=== PATIENT | male | born 1995 | race Two or more races ===

== ENCOUNTER 2016-08-01 08:07 | Emergency (ER) | payer MEDICAID ==
--- NOTE | 2016-08-01 08:45 | EDM.PDOC ---
ED HPI RENAL/ - General Chief Complaint: Abdominal Pain Stated Complaint: [id number] PELVIC AND LOWER AB PAIN Time Seen by Provider: 08/01/16 08:35 Source of Information: Reports: Patient History Limitations: Reports: No limitations - History of Present Illness INITIAL COMMENTS - FREE TEXT/NARRATIVE: This 21 yo male patient reports to the ED with a 1 day history of increased pain in his pelvis and testicles. The patient reports increased pain in the left side, but both testicles are sore. The patient reports he feels like he is constantly urinating. The patient has only been able to void small amounts of urine. The patient reports increased pain yesterday after lifting 50 pound bags of popcorn. The patient reports no new sexual partners, no drainage and no increased pain with urination. Symptom Onset Date: 07/31/16 Timing/Duration: Reports: Constant Location: Reports: scrotal Quality: Reports: ache Severity: moderate Context: Reports: lifting Associated Symptoms: Reports: voiding small amounts, groin pain, testicular pain , abdominal pain (lower abdominal and pelvic pain). Denies: incontinence, burning, dysuria, frequency, hesitancy, nocturia, urgency, unable to urinate, penile discharge, blood in ejaculate, blood in urine, fever/chills, inguinal mass, nausea/vomiting, constipation - Related Data Allergies/ADRs: Allergies Allergy/AdvReac Type Severity Reaction Status Date / Time latex Allergy Swelling Verified 08/01/16 08:21 Home Meds: Home Meds Escitalopram [Lexapro] 20 mg PO BEDTIME 02/27/15 [History] Past Medical History - Past Health History Medical/Surgical History: Denies Medical/Surgical History Musculoskeletal History: Reports: Other (see below) Other Musculoskeletal History: at age 7 broke right wrist and broke left arm in 7th grade Psychiatric History: Reports: Depression, Suicide attempt, Suicidal ideation Social & Family History - Family History Family Medical History: Noncontributory - Tobacco Use Smoking Status *Q: Never Smoker Second Hand Smoke Exposure: Yes - Caffeine Use Caffeine Use: Reports: Soda - Recreational Drug Use Recreational Drug Use: No ED ROS GENERAL - Review of Systems Review Of Systems: ROS reveals no pertinent complaints other than HPI. ED EXAM, RENAL/ - Physical Exam Exam: See Below Exam Limited By: No limitations General Appearance: alert, WD/WN, anxious, moderate distress Eye Exam: bilateral eye: EOMI, normal inspection, PERRL Ears: normal external exam, normal canal, hearing grossly normal, normal TMs Nose: normal inspection, normal mucosa, no blood Throat/Mouth: Normal inspection, Normal lips, Normal teeth, Normal gums, Normal oropharynx, Normal voice, No airway compromise Head: atraumatic, normocephalic Neck: normal inspection, supple, non-tender, full range of motion Respiratory/Chest: no respiratory distress, lungs clear, normal breath sounds, no accessory muscle use, chest non-tender Cardiovascular: normal peripheral pulses, regular rate, rhythm, no edema, no gallop, no JVD, no murmur, no rub GI/Abdominal: normal bowel sounds, soft, no organomegaly, no distention, no abnormal bruit, no mass, tender (lower abdomen) (Male) Exam: No hernia, Normal inspection, Circumcised, Cremasteric reflex, Scrotum tenderness (L), Scrotum tenderness (R), Suprapubic fullness, Testicular tenderness (L), Testicular tenderness (R). No: Hernia, Inguinal lymphadenopathy , Penile lesions, Rash, Scrotal swelling, Testicular mass, Urethral discharge Rectal (Males) Exam: Deferred Back Exam: normal inspection, full range of motion, NT Extremities: normal inspection, normal range of motion, non-tender, normal capillary refill, no pedal edema Neurological: alert, oriented, CN II-XII intact, normal cognition, normal gait, normal reflexes, no motor/sensory deficits Psychiatric: normal affect, normal mood Skin Exam: Warm, Dry, Intact, Normal color, No rash Lymphatic: no adenopathy Course - Vital Signs Last Recorded V/S: Last Vital Signs Temp 36.3 C 08/01/16 08:22 Pulse 88 08/01/16 08:22 Resp 20 08/01/16 08:22 BP 132/78 08/01/16 08:22 Pulse Ox 100 08/01/16 08:22 - Orders/Labs/Meds Orders: Active Orders 24 hr Category Date Time Status Pelvis wo Cont [CT] Urgent Exams 08/01/16 09:01 Taken CHLAMYDIA TRACHOMATIS/GC AMPLF Urgent Lab 08/01/16 08:09 Received Labs: Laboratory Tests 08/01/16 08/01/16 08/01/16 Range/Units 08:09 08:09 08:25 WBC 7.0 (5.0-10.0) 10^3/uL RBC 5.89 (4.6-6.2) 10^6/uL Hgb 16.2 (14.0-18.0) g/dL Hct 47.0 (40.0-54.0) % MCV 79.8 L (80-100) fL MCH 27.5 (27.0-34.0) pg MCHC 34.5 (33.0-35.0) g/dL Plt Count 295 (150-450) 10^3/uL Neut % (Auto) 60.5 (42.2-75.2) % Lymph % (Auto) 29.1 (20.5-50.1) % Sibley % (Auto) 8.7 H (2-8) % Eos % (Auto) 1.4 (1.0-3.0) % Baso % (Auto) 0.3 (0.0-1.0) % Sodium (135-145) mmol/L Potassium (3.6-5.0) mmol/L Chloride (101-111) mmol/L Carbon Dioxide (21.0-31.0) mmol/L Anion Gap BUN (7-18) mg/dL Creatinine (0.6-1.3) mg/dL Est Cr Clr Drug Dosing mL/min Estimated GFR (MDRD) BUN/Creatinine Ratio Glucose (74-105) mg/dL Calcium (8.4-10.2) mg/dl Total Bilirubin (0.2-1.0) mg/dL AST (10-42) IU/L ALT (10-60) IU/L Alkaline Phosphatase (42-121) IU/L Total Protein (6.7-8.2) g/dl Albumin (3.2-5.5) g/dl Globulin Albumin/Globulin Ratio Urine Color Yellow (YELLOW) Urine Appearance Slightly cloudy (CLEAR) Urine pH 5.5 (5.0-9.0) Ur Specific [place] 1.020 (1.005-1.030) Urine Protein Negative (NEGATIVE) Urine Glucose (UA) Negative (NEGATIVE) Urine Ketones Negative (NEGATIVE) Urine Occult Blood Negative (NEGATIVE) Urine Nitrite Negative (NEGATIVE) Urine Bilirubin Negative (NEGATIVE) Urine Urobilinogen 0.2 (0.2-1.0) mg/dL Ur Leukocyte Esterase Negative (NEGATIVE) Urine RBC 0-5 /HPF Urine WBC 5-10 H (0-5/HPF) /HPF Ur Epithelial Cells Rare /HPF Urine Mucus Few H /LPF Urine Opiates Screen Negative (NEGATIVE) Ur Oxycodone Screen Negative (NEGATIVE) Urine Methadone Screen Negative (NEGATIVE) Ur Barbiturates Screen Negative (NEGATIVE) U Tricyclic Antidepress Negative (NEGATIVE) Ur Phencyclidine Scrn Negative (NEGATIVE) Ur Amphetamine Screen Negative (NEGATIVE) U Methamphetamines Scrn Negative (NEGATIVE) Urine MDMA Screen Negative (NEGATIVE) U Benzodiazepines Scrn Negative (NEGATIVE) Urine Cocaine Screen Negative (NEGATIVE) U Marijuana (THC) Screen Negative (NEGATIVE) 08/01/16 Range/Units 08:25 WBC (5.0-10.0) 10^3/uL RBC (4.6-6.2) 10^6/uL Hgb (14.0-18.0) g/dL Hct (40.0-54.0) % MCV (80-100) fL MCH (27.0-34.0) pg MCHC (33.0-35.0) g/dL Plt Count (150-450) 10^3/uL Neut % (Auto) (42.2-75.2) % Lymph % (Auto) (20.5-50.1) % Sibley % (Auto) (2-8) % Eos % (Auto) (1.0-3.0) % Baso % (Auto) (0.0-1.0) % Sodium 136 (135-145) mmol/L Potassium 3.7 (3.6-5.0) mmol/L Chloride 101 (101-111) mmol/L Carbon Dioxide 27.0 (21.0-31.0) mmol/L Anion Gap 11.7 BUN 13 (7-18) mg/dL Creatinine 0.8 (0.6-1.3) mg/dL Est Cr Clr Drug Dosing 156.88 mL/min Estimated GFR (MDRD) > 60 BUN/Creatinine Ratio 16.25 Glucose 95 (74-105) mg/dL Calcium 9.3 (8.4-10.2) mg/dl Total Bilirubin 0.6 (0.2-1.0) mg/dL AST 25 (10-42) IU/L ALT 23 (10-60) IU/L Alkaline Phosphatase 123 H (42-121) IU/L Total Protein 7.8 (6.7-8.2) g/dl Albumin 4.4 (3.2-5.5) g/dl Globulin 3.4 Albumin/Globulin Ratio 1.29 Urine Color (YELLOW) Urine Appearance (CLEAR) Urine pH (5.0-9.0) Ur Specific [place] (1.005-1.030) Urine Protein (NEGATIVE) Urine Glucose (UA) (NEGATIVE) Urine Ketones (NEGATIVE) Urine Occult Blood (NEGATIVE) Urine Nitrite (NEGATIVE) Urine Bilirubin (NEGATIVE) Urine Urobilinogen (0.2-1.0) mg/dL Ur Leukocyte Esterase (NEGATIVE) Urine RBC /HPF Urine WBC (0-5/HPF) /HPF Ur Epithelial Cells /HPF Urine Mucus /LPF Urine Opiates Screen (NEGATIVE) Ur Oxycodone Screen (NEGATIVE) Urine Methadone Screen (NEGATIVE) Ur Barbiturates Screen (NEGATIVE) U Tricyclic Antidepress (NEGATIVE) Ur Phencyclidine Scrn (NEGATIVE) Ur Amphetamine Screen (NEGATIVE) U Methamphetamines Scrn (NEGATIVE) Urine MDMA Screen (NEGATIVE) U Benzodiazepines Scrn (NEGATIVE) Urine Cocaine Screen (NEGATIVE) U Marijuana (THC) Screen (NEGATIVE) Departure - Departure Time of Disposition: 11:03 Disposition: Home, Self-Care 01 Condition: fair Clinical Impression: Groin strain Qualifiers: Encounter type: initial encounter Laterality: unspecified laterality Qualified Code(s): S76.219A - Strain of adductor muscle, fascia and tendon of unspecified thigh, initial encounter Instructions: Muscle Strain, [id number] Forms: ED Department Discharge Care Plan Goals: The patient was advised of the examination, lab and CT results during the visit. The patient was encouraged to take Tylenol or ibuprofen for temporary symptom relief. If the patient has any additional symptoms or concerns, the patient should follow-up with his clinic provider for additional examination and treatment. - My Orders Last 24 Hours: My Active Orders 08/01/16 08:09 CHLAMYDIA TRACHOMATIS/GC AMPLF Urgent 08/01/16 09:01 Pelvis wo Cont [CT] Urgent - Assessment/Plan Last 24 Hours: My Active Orders 08/01/16 08:09 CHLAMYDIA TRACHOMATIS/GC AMPLF Urgent 08/01/16 09:01 Pelvis wo Cont [CT] Urgent
[2016-08-01 08:52] LABS: CHLORIDE,CL 101 mmol/L (101-111); SODIUM,NA 136 mmol/L (135-145)
[2016-08-01 11:11] VITALS: BP 128/74
--- NOTE | 2016-08-01 11:23 | CT ---
CLINICAL HISTORY: 21-year-old male with "urinary frequency" and pelvic pain extends into the scrotum after lifting "50 pound sack's". Rule out hernia, stress fracture or other unusual entity. WBC and urinalysis "normal". SCAN TECHNIQUE: Volume acquisition of data from an emergency unenhanced CT scan of the pelvis and gr oin obtained without oral or IV contrast while the patient was lying supine on the Siemens multislic e CT scanner [place], [place]. All data archived in the PACS system f or storage, reformatting and study. INTERPRETATION: 1. No sign of ventral or inguinal/femoral hernia. 2. Symmetrically distended midline urinary bladder. No foreign bodies. No pelvic soft tissue mass or lymphadenopathy. Normal appendix midline upper pelvis. 3. Homogeneous normal bone density, symmetric normal-appearing SI and hip joints without arthritic d egenerative change, and no sign of pathologic skeletal lesion, pelvic or either hip fracture/disloca tion. 4. Symmetric normal-appearing musculature and soft tissue planes. 5. Lower lumbar spine and sacrum/coccyx unremarkable. CONCLUSION: Negative exam.
== END 2016-08-01 11:12 | disposition home or self-care (01) ==
LOC: DL.ED 08:07
DX: S76.219A Strain of adductor muscle, fascia and tendon of unspecified thigh, initial encounter (principal); N50.812 Left testicular pain; N50.811 Right testicular pain; F32.9 Major depressive disorder, single episode, unspecified; X50.0XXA Overexertion from strenuous movement or load, initial encounter; X50.9XXA Other and unspecified overexertion or strenuous movements or postures, initial encounter; Y93.89 Activity, other specified; Z91.040 Latex allergy status; Z79.899 Other long term (current) drug therapy
CPT/HCPCS: 36415; 72192; 80053; 80305; 81001; 85025; 87491; 87591; 99284

== ENCOUNTER 2016-11-25 19:37 | Emergency (ER) | payer MEDICAID, OTHER ==
[2016-11-25 19:50] VITALS: BP 132/74
--- NOTE | 2016-11-25 20:15 | EDM.PDOC ---
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 Treatments FAMILY SUPPORT SPECIALIST: Reports: NSAIDS Right Ankle Pain Score (Numeric/FACES): 3 - Related Data Allergies Allergy/AdvReac Type Severity Reaction Status Date / Time latex Allergy Swelling Verified 11/25/16 19:50 Home Meds: Home Meds . [No Known Home Meds] 11/25/16 [History] Past Medical History - Past Health History Medical/Surgical History: Denies Medical/Surgical History Musculoskeletal History: Reports: Other (See Below) Other Musculoskeletal History: fx wrist and arm with pins to wrist. Psychiatric History: Reports: Depression, Suicide Attempt, Suicidal Ideation Social & Family History - Family History Family Medical History: Noncontributory - Tobacco Use Smoking Status *Q: Never Smoker Second Hand Smoke Exposure: Yes - Caffeine Use Caffeine Use: Reports: Soda - Recreational Drug Use Recreational Drug Use: No Review of Systems - Review of Systems Review Of Systems: ROS reveals no pertinent complaints other than HPI. ED EXAM, GENERAL - Physical Exam Exam: See Below Exam Limited By: No Limitations General Appearance: Alert, WD/WN, No Apparent Distress Ears: Hearing Grossly Normal Throat/Mouth: Normal Voice, No Airway Compromise Head: Atraumatic Neck: Non-Tender, Full Range of Motion Respiratory/Chest: No Respiratory Distress Cardiovascular: Regular Rate, Rhythm GI/Abdominal: Soft, Non-Tender Extremities: Other (right ankle tender over dorsum, swollen, NV wnl, gait limited to pain) Neurological: Alert, Oriented, Normal Cognition, No Motor/Sensory Deficits Psychiatric: Normal Affect, Normal Mood Skin Exam: Warm, Dry, Normal Color Lymphatic: No Adenopathy Course - Vital Signs Last Recorded V/S: Last Vital Signs Temp 36.6 C 11/25/16 19:43 Pulse 112 H 11/25/16 19:43 Resp 16 11/25/16 19:43 BP 132/74 11/25/16 19:43 Pulse Ox 98 11/25/16 19:43 - Orders/Labs/Meds Orders: Active Orders 24 hr Category Date Time Status Ankle 2V Rt [CR] Urgent Exams 11/25/16 19:43 Taken - Re-Assessments/Exams Free Text/Narrative Re-Assessment/Exam: 11/25/16 20:54 x-ray discussed with mother & pt. Departure - Departure Time of Disposition: 20:55 Disposition: Home, Self-Care 01 Condition: Good Clinical Impression: Ankle sprain Qualifiers: Encounter type: initial encounter Involved ligament of ankle: unspecified ligament Laterality: right Qualified Code(s): S93.401A - Sprain of unspecified ligament of right ankle, initial encounter - Discharge Information Instructions: Ankle Sprain, [id number] Forms: ED Department Discharge Additional Instructions: 1) wear CLAUDIA for comfort 2) elevate as much as possible next 48 hours 3) recheck at clinic for MRI SCAN if not significantly improved by Saturday - My Orders Last 24 Hours: My Active Orders 11/25/16 19:43 Ankle 2V Rt [CR] Urgent - Assessment/Plan Last 24 Hours: My Active Orders 11/25/16 19:43 Ankle 2V Rt [CR] Urgent
== END 2016-11-25 21:03 | disposition home or self-care (01) ==
LOC: DL.ED 19:37
DX: S93.401A Sprain of unspecified ligament of right ankle, initial encounter (principal); F32.9 Major depressive disorder, single episode, unspecified; Z91.040 Latex allergy status; W50.2XXA Accidental twist by another person, initial encounter
CPT/HCPCS: 73600-RT; 99283

== ENCOUNTER 2017-02-13 16:55 | Emergency (ER) | payer SELFPAY ==
[2017-02-13 17:22] VITALS: BP 132/74
--- NOTE | 2017-02-13 17:51 | EDM.PDOCBH ---
ED HPI GENERAL MEDICAL PROBLEM - General Chief Complaint: Behavioral/Psych Stated Complaint: [id number] MEDICATION ISSUE - Related Data Allergies Allergy/AdvReac Type Severity Reaction Status Date / Time latex Allergy Swelling Verified 11/25/16 19:50 Home Meds: Home Meds . [No Known Home Meds] 11/25/16 [History] Past Medical History - Past Health History Medical/Surgical History: Denies Medical/Surgical History Musculoskeletal History: Reports: Other (See Below) Other Musculoskeletal History: fx wrist and arm with pins to wrist. Psychiatric History: Reports: Anxiety, Depression, Suicide Attempt, Suicidal Ideation Social & Family History - Family History Family Medical History: Noncontributory - Tobacco Use Smoking Status *Q: Never Smoker Second Hand Smoke Exposure: Yes - Caffeine Use Caffeine Use: Reports: Energy Drinks - Recreational Drug Use Recreational Drug Use: No COURSE, BEHAVIORAL HEALTH COMP - Course Vital Signs: Last Vital Signs Temp 98.8 F 02/13/17 17:21 Pulse 95 02/13/17 17:21 Resp 18 02/13/17 17:21 BP 132/74 02/13/17 17:21 Pulse Ox 99 02/13/17 17:21 Departure - Departure Time of Disposition: 17:48 Disposition: Home, Self-Care 01 Condition: Fair Clinical Impression: Anxiety Depression Qualifiers: Depression Type: unspecified Qualified Code(s): F32.9 - Major depressive disorder, single episode, unspecified - Discharge Information Instructions: Panic Attacks, [id number], Lorazepam tablets Additional Instructions: RX: Ativan Follow up with Juanito Correa NP on Saturday. Call [facility] for an appointment. Return to the ER with any further problems.
--- NOTE | 2017-02-13 17:51 | EDM.PDOCBH ---
ED HPI GENERAL MEDICAL PROBLEM - General Chief Complaint: Behavioral/Psych Stated Complaint: [id number] MEDICATION ISSUE Time Seen by Provider: 02/13/17 17:39 Source of Information: Reports: Patient, Family, RN, RN Notes Reviewed History Limitations: Reports: No Limitations - History of Present Illness INITIAL COMMENTS - FREE TEXT/NARRATIVE: Patient has been off Lexapro for "quite a while" a few months (4). He has an appointment to see Bucky Correa in the clinic. He is angry and anxious at work yesterday. Will call [facility] to make appointment. He states when he was upset yesterday that the thought had occurred to harm himself, but he "got it under control". He states he does not have any feelings at this time of harming himself. Onset: Gradual Duration: Getting Worse Quality: Reports: Other (anxious and angry) Severity: Moderate Improves with: Reports: None Worsens with: Reports: None Associated Symptoms: Reports: No Other Symptoms - Related Data Allergies Allergy/AdvReac Type Severity Reaction Status Date / Time latex Allergy Swelling Verified 11/25/16 19:50 Home Meds: Home Meds . [No Known Home Meds] 11/25/16 [History] Past Medical History - Past Health History Medical/Surgical History: Denies Medical/Surgical History Musculoskeletal History: Reports: Other (See Below) Other Musculoskeletal History: fx wrist and arm with pins to wrist. Psychiatric History: Reports: Anxiety, Depression, Suicide Attempt, Suicidal Ideation Social & Family History - Family History Family Medical History: Noncontributory - Tobacco Use Smoking Status *Q: Never Smoker Second Hand Smoke Exposure: Yes - Caffeine Use Caffeine Use: Reports: Energy Drinks - Recreational Drug Use Recreational Drug Use: No ED ROS GENERAL - Review of Systems Review Of Systems: ROS reveals no pertinent complaints other than HPI. ED EXAM, BEHAVIORAL HEALTH - Physical Exam Exam: See Below Exam Limited By: No Limitations General Appearance: Alert, WD/WN, No Apparent Distress Eye Exam: Bilateral Eye: Normal Inspection Ears: Normal External Exam, Normal Canal, Hearing Grossly Normal, Normal TMs Nose: Normal Inspection, Normal Mucosa, No Blood Throat/Mouth: Normal Inspection, Normal Lips, Normal Teeth, Normal Gums, Normal Oropharynx, Normal Voice, No Airway Compromise Head: Atraumatic, Normocephalic Neck: Normal Inspection, Supple, Non-Tender, Full Range of Motion Respiratory/Chest: No Respiratory Distress, Lungs Clear, Normal Breath Sounds, No Accessory Muscle Use, Chest Non-Tender Cardiovascular: Normal Peripheral Pulses, Regular Rate, Rhythm, No Edema, No Gallop, No JVD, No Murmur, No Rub GI/Abdominal: Normal Bowel Sounds, Soft, Non-Tender, No Organomegaly, No Distention, No Abnormal Bruit, No Mass (Male) Exam: Deferred Rectal (Males) Exam: Deferred Back Exam: Normal Inspection, Full Range of Motion, NT Extremities: Normal Inspection, Normal Range of Motion, Non-Tender, Normal Capillary Refill, No Pedal Edema Neurological: Alert, Normal Mood/Affect, CN II-XII Intact, Normal Cognition, Normal Gait, Normal Reflexes, No Motor/Sensory Deficits, Oriented x 3 Psychiatric: Tearful, Other (Anxious. Affect normal.) Skin Exam: Warm COURSE, BEHAVIORAL HEALTH COMP - Course Vital Signs: Last Vital Signs Temp 98.8 F 02/13/17 17:21 Pulse 95 02/13/17 17:21 Resp 18 02/13/17 17:21 BP 132/74 02/13/17 17:21 Pulse Ox 99 02/13/17 17:21 Re-Assessment/Re-Exam: Discussed with the patient why I could not order Lexapro from the ER, as I could not follow up with him. I told him I could give him some Ativan to help him with the anxiety. We discussed the appointment he has already set up with Juanito Correa NP on 02/15/17. He states he will also call the [facility] tomorrow for an appointment for counseling. He states he does not feel we need to call the [facility] [place] or Crisis Line at this time. He and the friend in the room both agree to the plan. Departure - Departure Time of Disposition: 17:52 Disposition: Home, Self-Care 01 Clinical Impression: Anxiety Depression Qualifiers: Depression Type: unspecified Qualified Code(s): F32.9 - Major depressive disorder, single episode, unspecified - Discharge Information Instructions: Panic Attacks, [id number], Lorazepam tablets Forms: ED Department Discharge Additional Instructions: RX: Ativan Follow up with Juanito Correa NP on Saturday. Call [facility] for an appointment. Return to the ER with any further problems.
== END 2017-02-13 17:57 | disposition home or self-care (01) ==
LOC: DL.ED 16:55
DX: F41.9 Anxiety disorder, unspecified (principal); F32.9 Major depressive disorder, single episode, unspecified; Z91.040 Latex allergy status
CPT/HCPCS: 99283

== ENCOUNTER 2017-12-16 02:41 | Emergency (ER) | payer OTHER ==
[2017-12-16] MEDS ORDERED: MVI, Adult with Vitamin K 10 ML, Folic Acid 1 MG, Thiamine 100 MG in Lactated Ringers 1... IV ONE ×4 (02:49)
[2017-12-16 03:00] VITALS: BP 106/65
[2017-12-16 03:25] LABS: CHLORIDE,CL 104 mmol/L (101-111); SODIUM,NA 138 mmol/L (135-145)
[2017-12-16 03:26] LABS: ACETAMINOPHEN < 10
--- NOTE | 2017-12-16 04:38 | EDM.PDOC ---
"ED HPI GENERAL MEDICAL PROBLEM - General Chief Complaint: Drug or Alcohol Abuse Stated Complaint: AMBULANCE Time Seen by Provider: 12/16/17 02:45 Source of Information: Reports: EMS, Family History Limitations: Reports: Altered Mental Status - History of Present Illness INITIAL COMMENTS - FREE TEXT/NARRATIVE: ED via [facility] with report intoxication, unresponsive. EMS contacted by family. Mother here. Reports patient had called brother around 130 and all brother could understand was don't hang up and line went , brother called mother and she went to his apartment and found him unresponsive lying in pool of vomit and large bottle of UV vodka in area. States patient does not usually drink. Hx of depression , recent breakup with girlfriend 2 weeks ago. Hx of suicide attempts prior. Law enforcement here also and report previous calls to apartment . No known hx of illegal drugs. Reported OD on depression medications in hx. Mother unsure if currently on medications. Looked for pill bottles and did not find anything in home. Kitchen table knocked over where patient lying. IVF initiated by EMS. - Related Data Allergies Allergy/AdvReac Type Severity Reaction Status Date / Time latex Allergy Swelling Verified 11/25/16 19:50 Home Meds: Home Meds . [No Known Home Meds] 11/25/16 [History] Past Medical History - Past Health History Medical/Surgical History: Denies Medical/Surgical History Musculoskeletal History: Reports: Other (See Below) Other Musculoskeletal History: fx wrist and arm with pins to wrist. Psychiatric History: Reports: Anxiety, Depression, Suicide Attempt, Suicidal Ideation Social & Family History - Family History Family Medical History: Noncontributory - Caffeine Use Caffeine Use: Reports: Energy Drinks ED ROS GENERAL - Review of Systems Review Of Systems: ROS reveals no pertinent complaints other than HPI. Constitutional: Reports: No Symptoms HEENT: Reports: No Symptoms Respiratory: Reports: No Symptoms Cardiovascular: Reports: No Symptoms Endocrine: Reports: No Symptoms GI/Abdominal: Reports: No Symptoms : Reports: No Symptoms Musculoskeletal: Reports: No Symptoms Skin: Reports: No Symptoms Neurological: Reports: No Symptoms Psychiatric: Reports: No Symptoms Hematologic/Lymphatic: Reports: No Symptoms Immunologic: Reports: No Symptoms - Physical Exam Exam: See Below Exam Limited By: No Limitations General Appearance: Obtunded, Obese Eye Exam: Bilateral Eye: PERRL (sluggish 4mm) Ears: Normal External Exam, Normal TMs Nose: Normal Inspection Throat/Mouth: Other (vomitus amal amount in oral cavity) Head Exam: Atraumatic, Normocephalic Neck: Normal Inspection, Supple, Non-Tender, Full Range of Motion Respiratory/Chest: No Respiratory Distress, Lungs Clear, Decreased Breath Sounds Cardiovascular: Normal Peripheral Pulses, Regular Rate, Rhythm, Tachycardia GI/Abdominal: Normal Bowel Sounds, Soft (Male) Exam: Normal Inspection Rectal (Males) Exam: Normal Exam, Normal Rectal Tone, Prostate Normal Neuro Exam (Abbreviated): Unresponsive, Other (GCS 6) Back Exam: Normal Inspection, Full Range of Motion, NT Extremities: No: Pallor Psychiatric: Normal Affect, Normal Mood Skin Exam: Warm, Dry, Intact. No: Wound/Incision EKG INTERPRETATION Rhythm: NSR [place]: Normal P-Wave: Present QRS: Normal ST-T: Normal QT: Normal Course - Vital Signs Last Recorded V/S: Last Vital Signs Temp 96.8 F 12/16/17 02:56 Pulse 97 12/16/17 02:56 Resp 18 12/16/17 02:56 BP 106/65 12/16/17 02:56 Pulse Ox 98 12/16/17 02:56 - Orders/Labs/Meds Orders: Active Orders 24 hr Category Date Time Status EKG Documentation Completion [RC] URGENT Care 12/16/17 02:50 Active Insert Martinez Catheter [Insert Urinary Catheter] [OM.PC] Care 12/16/17 03:15 Ordered Q24H Urinary Catheter Assessment [RC] ASDIRECTED Care 12/16/17 03:02 Active DRUG SCREEN URINE BIORAD [URCHEM] Stat Lab 12/16/17 02:56 Ordered UA W/MICROSCOPIC [URIN] Stat Lab 12/16/17 02:56 Ordered Restraint/S VIOL/SD Initiate 18 - Older [OM.PC] Stat Oth 12/16/17 02:45 Ordered Labs: Laboratory Tests 12/16/17 12/16/17 12/16/17 Range/Units 02:56 02:56 02:57 WBC 12.6 H (5.0-10.0) 10^3/uL RBC 5.60 (4.6-6.2) 10^6/uL Hgb 15.3 (14.0-18.0) g/dL Hct 44.9 (40.0-54.0) % MCV 80.2 (80-100) fL MCH 27.3 (27.0-34.0) pg MCHC 34.1 (33.0-35.0) g/dL Plt Count 282 (150-450) 10^3/uL Neut % (Auto) 73.1 (42.2-75.2) % Lymph % (Auto) 20.3 L (20.5-50.1) % [place] % (Auto) 6.0 (2-8) % Eos % (Auto) 0.4 L (1.0-3.0) % Baso % (Auto) 0.2 (0.0-1.0) % Sodium (135-145) mmol/L Potassium (3.6-5.0) mmol/L Chloride (101-111) mmol/L Carbon Dioxide (21.0-31.0) mmol/L Anion Gap BUN (7-18) mg/dL Creatinine (0.6-1.3) mg/dL Est Cr Clr Drug Dosing Estimated GFR (MDRD) BUN/Creatinine Ratio Glucose (74-105) mg/dL Calcium (8.4-10.2) mg/dl Total Bilirubin (0.2-1.0) mg/dL AST (10-42) IU/L ALT (10-60) IU/L Alkaline Phosphatase (42-121) IU/L Total Protein (6.7-8.2) g/dl Albumin (3.2-5.5) g/dl Globulin Albumin/Globulin Ratio Urine Color Yellow (YELLOW) Urine Appearance Clear (CLEAR) Urine pH 6.0 (5.0-9.0) Ur Specific [place] 1.020 (1.005-1.030) Urine Protein Negative (NEGATIVE) Urine Glucose (UA) Negative (NEGATIVE) Urine Ketones Negative (NEGATIVE) Urine Occult Blood Negative (NEGATIVE) Urine Nitrite Negative (NEGATIVE) Urine Bilirubin Negative (NEGATIVE) Urine Urobilinogen 0.2 (0.2-1.0) mg/dL Ur Leukocyte Esterase Negative (NEGATIVE) Urine RBC 0-5 /HPF Urine WBC 0-5 (0-5/HPF) /HPF Ur Epithelial Cells Rare /HPF Urine Bacteria Rare (0-FEW/HPF) /HPF Urine Mucus Few H /LPF Salicylates Urine Opiates Screen Negative (NEGATIVE) Ur Oxycodone Screen Negative (NEGATIVE) Urine Methadone Screen Negative (NEGATIVE) Acetaminophen Ur Barbiturates Screen Negative (NEGATIVE) U Tricyclic Antidepress Negative (NEGATIVE) Ur Phencyclidine Scrn Negative (NEGATIVE) Ur Amphetamine Screen Negative (NEGATIVE) U Methamphetamines Scrn Negative (NEGATIVE) Urine MDMA Screen Negative (NEGATIVE) U Benzodiazepines Scrn Negative (NEGATIVE) Urine Cocaine Screen Negative (NEGATIVE) U Marijuana (THC) Screen Negative (NEGATIVE) Ethyl Alcohol mg/dL 12/16/17 Range/Units 02:57 WBC (5.0-10.0) 10^3/uL RBC (4.6-6.2) 10^6/uL Hgb (14.0-18.0) g/dL Hct (40.0-54.0) % MCV (80-100) fL MCH (27.0-34.0) pg MCHC (33.0-35.0) g/dL Plt Count (150-450) 10^3/uL Neut % (Auto) (42.2-75.2) % Lymph % (Auto) (20.5-50.1) % [place] % (Auto) (2-8) % Eos % (Auto) (1.0-3.0) % Baso % (Auto) (0.0-1.0) % Sodium 138 (135-145) mmol/L Potassium 3.0 L (3.6-5.0) mmol/L Chloride 104 (101-111) mmol/L Carbon Dioxide 22.0 (21.0-31.0) mmol/L Anion Gap 15.0 BUN 9 (7-18) mg/dL Creatinine 1.0 (0.6-1.3) mg/dL Est Cr Clr Drug Dosing TNP Estimated GFR (MDRD) > 60 BUN/Creatinine Ratio 9.00 Glucose 132 H (74-105) mg/dL Calcium 7.8 L D (8.4-10.2) mg/dl Total Bilirubin 0.5 (0.2-1.0) mg/dL AST 37 (10-42) IU/L ALT 49 (10-60) IU/L Alkaline Phosphatase 95 (42-121) IU/L Total Protein 6.8 (6.7-8.2) g/dl Albumin 3.8 (3.2-5.5) g/dl Globulin 3.0 Albumin/Globulin Ratio 1.27 Urine Color (YELLOW) Urine Appearance (CLEAR) Urine pH (5.0-9.0) Ur Specific [place] (1.005-1.030) Urine Protein (NEGATIVE) Urine Glucose (UA) (NEGATIVE) Urine Ketones (NEGATIVE) Urine Occult Blood (NEGATIVE) Urine Nitrite (NEGATIVE) Urine Bilirubin (NEGATIVE) Urine Urobilinogen (0.2-1.0) mg/dL Ur Leukocyte Esterase (NEGATIVE) Urine RBC /HPF Urine WBC (0-5/HPF) /HPF Ur Epithelial Cells /HPF Urine Bacteria (0-FEW/HPF) /HPF Urine Mucus /LPF Salicylates < 4 Urine Opiates Screen (NEGATIVE) Ur Oxycodone Screen (NEGATIVE) Urine Methadone Screen (NEGATIVE) Acetaminophen < 10 Ur Barbiturates Screen (NEGATIVE) U Tricyclic Antidepress (NEGATIVE) Ur Phencyclidine Scrn (NEGATIVE) Ur Amphetamine Screen (NEGATIVE) U Methamphetamines Scrn (NEGATIVE) Urine MDMA Screen (NEGATIVE) U Benzodiazepines Scrn (NEGATIVE) Urine Cocaine Screen (NEGATIVE) U Marijuana (THC) Screen (NEGATIVE) Ethyl Alcohol 182 mg/dL Meds: Medications Discontinued Medications Generic Name Dose Route Start Last Admin Trade Name Freq PRN Reason Stop Dose Admin Multivitamins/Minerals 10 ml/ 1,011.2 mls @ 999 mls/hr 12/16/17 02:49 03:07 Folic Acid 1 mg/ Thiamine HCl IV 12/16/17 03:49 999 mls/hr 100 mg/ Lactated Ringer's ONETIME ONE Administration - Radiology Interpretation Free Text/Narrative:: [facility] Final Radiology Report Call: [phone] assistance Online chat: [email or web address] Mobile Name: ROGER MONREAL Age: 22Years M Date: 12/16/2017 SSN: -- : [id number] Study: XR CHEST 1 VIEW Requesting Physician: SHAWANDA ARANGO Images: 1 Addl Studies: Provided Clinical History: Contrast: Contrast Medium: Contrast Amount: Contrast Method: CONFIDENTIALITY STATEMENT This report is intended only for use by the referring physician, and only in accordance with law. If you received this in error, call [phone]. Page 1 of 1 EXAM: XR Chest, 1 View CLINICAL HISTORY: 22 years old, male; Signs and symptoms; Other: Et and feeding tube placement TECHNIQUE: Frontal view of the chest. COMPARISON: No relevant prior studies available. FINDINGS: Lungs: Unremarkable. No consolidation. Pleural space: Unremarkable. No pneumothorax. Heart: Unremarkable. No cardiomegaly. Mediastinum: Unremarkable. Bones/joints: Unremarkable. Tubes, lines and devices: Endotracheal tube tip is 2 cm above the level of the pablo. Nasogastric tube tip in the fundus of the stomach. IMPRESSION: Tubes as discussed above. Thank you for allowing us to participate in the care of your patient. Dictated and Authenticated by: Gorge Singleton MD 12/16/2017 3:42 AM Central Time ( & Daron) [facility] Final Radiology Report Call: [phone] assistance Online chat: [email or web address] Mobile Name: ROGER MONREAL Age: 22Years M Date: 12/16/2017 SSN: -- : [id number] Study: CT HEAD WO Requesting Physician: SHAWANDA ARANGO Images: 153 Addl Studies: Provided Clinical History: Contrast: Without Contrast Medium: Contrast Amount: Contrast Method: Page 1 of 2 EXAM: CT Head Without Intravenous Contrast CLINICAL HISTORY: 22 years old, male; Signs and symptoms; Other: Altered mentation--etoh, found laying on floor TECHNIQUE: Axial computed tomography images of the head/brain without intravenous contrast. All CT scans at this facility use at least one of these dose optimization techniques: automated exposure control; mA and/or kV adjustment per patient size (includes targeted exams where dose is matched to clinical indication); or iterative reconstruction. Coronal and sagittal reformatted images were created and reviewed. COMPARISON: CT - Head wo Cont 05/31/2015 4:22 PM FINDINGS: Brain: Unremarkable. No hemorrhage. No significant white matter disease. No edema. Ventricles: Unremarkable. No ventriculomegaly. Bones/joints: Unremarkable. No acute fracture. Soft tissues: Unremarkable. Sinuses: Unremarkable as visualized. No acute sinusitis. Mastoid air cells: Unremarkable as visualized. No mastoid effusion. IMPRESSION: Normal head/brain CT. Thank you for allowing us to participate in the care of your patient. Dictated and Authenticated by: Gorge Singleton MD ROGER MONREAL | Final Radiology Report - Re-Assessments/Exams Free Text/Narrative Re-Assessment/Exam: 12/16/17 04:43 [facility] notified, arrival patient prepped for intubation. Responding only to painful stimuli. Combative with martinez placement only attempting to bite staff. Flicker of eye movement with reposition , withdraw to IV start. [facility] accepting of patient in tx for higher level of care. ET placement by F. Placement confirmed. Head CT immediately prior to tx per request. Consent for tx signed by mother. Departure - Departure Time of Disposition: 04:25 Disposition: DC/Tfer to Acute Hospital 02 Condition: Undetermined Clinical Impression: Alcohol abuse Altered mental status Qualifiers: Altered mental status type: coma Coma depth: Mallory coma 3-8 Coma timing: unspecified coma timing Qualified Code(s): R40.2430 - Mallory coma scale score 3 -8, unspecified time - Discharge Information *PRESCRIPTION DRUG MONITORING PROGRAM REVIEWED*: No Referrals: PCP,Unobtain [Primary Care Provider] - Forms: ED Department Discharge - My Orders Last 24 Hours: My Active Orders 12/16/17 02:45 Restraint/S VIOL/SD Initiate 18 - Older [OM.PC] Stat 12/16/17 02:50 EKG Documentation Completion [RC] URGENT 12/16/17 02:56 DRUG SCREEN URINE BIORAD [URCHEM] Stat UA W/MICROSCOPIC [URIN] Stat 12/16/17 03:02 Urinary Catheter Assessment [RC] ASDIRECTED 12/16/17 03:15 Insert Martinez Catheter [Insert Urinary Catheter] [OM.PC] Q24H - Assessment/Plan Last 24 Hours: My Active Orders 12/16/17 02:45 Restraint/S VIOL/SD Initiate 18 - Older [OM.PC] Stat 12/16/17 02:50 EKG Documentation Completion [RC] URGENT 12/16/17 02:56 DRUG SCREEN URINE BIORAD [URCHEM] Stat UA W/MICROSCOPIC [URIN] Stat 12/16/17 03:02 Urinary Catheter Assessment [RC] ASDIRECTED 12/16/17 03:15 Insert Martinez Catheter [Insert Urinary Catheter] [OM.PC] Q24H"
== END 2017-12-16 04:00 ==
LOC: DL.ED 02:41
DX: F10.129 Alcohol abuse with intoxication, unspecified (principal); R40.2430 Glasgow coma scale score 3-8, unspecified time; Y90.6 Blood alcohol level of 120-199 mg/100 ml; Z91.040 Latex allergy status; F41.9 Anxiety disorder, unspecified; F32.9 Major depressive disorder, single episode, unspecified
CPT/HCPCS: 36415; 51702; 70450; 71045; 80053; 80305; 81001; 85025; 93005; 96365; 99285; G0480; J3411; J7120; 93010; J3490